=== PATIENT | male | born 1985 | race Caucasian/White ===

== ENCOUNTER 2023-10-01 20:18 | Inpatient (IN) | payer OTHER ==
[2023-10-01 22:47] VITALS: BMI 23.1
[2023-10-02] MEDS ORDERED: NICOTINE POLACRILEX 4 MG GUM BUC PRN (04:36)
[2023-10-02] MEDS ORDERED: POLYETHYLENE GLYCOL (HEALTHYLAX) 3350 17 GM PACKET PO PRN (04:36)
[2023-10-02] MEDS ORDERED: LOPERAMIDE HCL 2 MG CAPSULE PO PRN (04:36)
[2023-10-02] MEDS ORDERED: ACETAMINOPHEN 325 MG TABLET (FP) PO PRN (04:36)
[2023-10-02] MEDS ORDERED: IBUPROFEN 600 MG TABLET (FP) PO PRN (04:36)
[2023-10-02] MEDS ORDERED: METHOCARBAMOL 500 MG TABLET PO PRN (04:36)
[2023-10-02] MEDS ORDERED: NALOXONE HCL 0.4 MG/ML VIAL IM PRN (04:36)
[2023-10-02] MEDS ORDERED: BISMUTH SUBSALICYLATE 524 MG/30 ML PO PRN (04:36)
[2023-10-02] MEDS ORDERED: BENZONATATE 200 MG CAPSULE PO PRN (04:36)
[2023-10-02] MEDS ORDERED: DICYCLOMINE HCL 10 MG CAPSULE PO PRN (04:36)
[2023-10-02] MEDS ORDERED: guaiFENesin 600 MG TABLET.ER (FP) PO PRN (04:36)
[2023-10-02] MEDS ORDERED: IBUPROFEN 400 MG TABLET (FP) PO PRN (04:36)
[2023-10-02] MEDS ORDERED: hydrOXYzine PAMOATE 25 MG CAPSULE (FP) PO PRN (04:36)
[2023-10-02] MEDS ORDERED: MAG HYDROX/AL HYDROX/SIMETH 30 ML UNIT-DOSE CUP PO PRN (04:36)
[2023-10-02] MEDS ORDERED: NALOXONE HCL (KLOXXADO) 8 MG SPRAY NS PRN (04:36)
[2023-10-02] MEDS ORDERED: BENZOCAINE/MENTHOL (CHLORASEPTIC ) LOZENGE MM PRN (04:36)
[2023-10-02] MEDS ORDERED: MAGNESIUM HYDROX 2400MG/30ML ORAL SUSPENSION 30 ML CUP PO PRN (04:36)
[2023-10-02] MEDS ORDERED: ONDANSETRON *ODT* 4 MG TABLET SL PRN (04:36)
[2023-10-02] MEDS: PRENATAL VITAMINS W/ FOLIC ACID TABLET (FP) PO SCH (10:07)
[2023-10-02] MEDS: NICOTINE 21 MG/24 HOURS TOPICAL PATCH TD SCH (10:11)
[2023-10-02] MEDS ORDERED: chlordiazePOXIDE HCL 25 MG CAPSULE PO PRN (10:22)
[2023-10-02] MEDS: chlordiazePOXIDE HCL 25 MG CAPSULE PO SCH (11:33)
[2023-10-02] MEDS: THIAMINE HCL 100 MG TABLET (FP) PO SCH (22:28)
[2023-10-02] MEDS: MELATONIN 5 MG TABLETS PO SCH (22:28)
[2023-10-03 12:51] LABS: HEMATOCRIT 45.6 % (35.4-49); HEMOGLOBIN 15.8 GM/dL (11.7-16.9); MCHC 34.8 g/dl (32.0-35.9); MEAN PLT VOLUME 8.8 fl (7.5-11.1); PLATELET COUNT 199 10^3/uL (134-434); POTASSIUM 3.9 mmol/L (3.5-5.1); RBC 4.95 M/mm3 (4.00-5.60); RDW 13.3 % (11.9-15.9); WHITE BLOOD COUNT 5.3 K/mm3 (4.0-10.0)
[2023-10-03 13:00] LABS: CALCIUM 8.9 mg/dL (8.5-10.1); CREATININE 0.9 mg/dL (0.55-1.3)
[2023-10-03 13:01] LABS: ALBUMIN 3.9 g/dl (3.4-5.0)
[2023-10-03 13:02] LABS: BILIRUBIN,TOTAL 0.5 mg/dL (0.2-1)
[2023-10-03] MEDS ORDERED: ALBUTEROL SO4 0.083% IH SOL 2.5 MG/3 ML VIAL.NEB. NEB PRN (18:48)
[2023-10-03] MEDS: ALBUTEROL SO4 HFA INHALER IH PRN (22:11)
[2023-10-04] MEDS: chlordiazePOXIDE HCL 25 MG CAPSULE PO SCH (05:34)
[2023-10-04 13:22] VITALS: RESP 18
[2023-10-04 16:43] VITALS: BP 153/83; PULSE 97; TEMP 98.4
[2023-10-05] MEDS ORDERED: chlordiazePOXIDE HCL 10 MG CAPSULE PO PRN
[2023-10-05] MEDS ORDERED: chlordiazePOXIDE HCL 10 MG CAPSULE PO SCH (05:00)
[2023-10-06] MEDS ORDERED: chlordiazePOXIDE HCL 10 MG CAPSULE PO SCH (05:00)
[2023-10-07] MEDS ORDERED: chlordiazePOXIDE HCL 10 MG CAPSULE PO ONE (05:00)
== END 2023-10-04 18:50 | disposition left against medical advice (07) | DRG 770 ==
LOC: YASAS 20:18 → Y3N 10-02 04:51
PROVIDERS: ADMIT Allergy & Immunology; ATTEND Surgery
PROC: HZ2ZZZZ Detoxification Services for Substance Abuse Treatment (ICD-10-PCS; principal; 2023-10-02)
DX: F10.230 Alcohol dependence with withdrawal, uncomplicated (principal); F14.20 Cocaine dependence, uncomplicated; F12.20 Cannabis dependence, uncomplicated; F17.210 Nicotine dependence, cigarettes, uncomplicated; J43.9 Emphysema, unspecified; Z86.59 Personal history of other mental and behavioral disorders; Z91.148 Patient's other noncompliance with medication regimen for other reason
CPT/HCPCS: 36415; 80053; 80305; 80307; 85027; 86780; 87635; 87811; 93005; 93010

== ENCOUNTER 2023-10-05 03:42 | Inpatient (IN) | payer OTHER ==
[2023-10-05 04:30] VITALS: BMI 24.2
[2023-10-05] MEDS ORDERED: BENZONATATE 200 MG CAPSULE PO PRN (04:32)
[2023-10-05] MEDS ORDERED: NICOTINE POLACRILEX 2 MG GUM BUC PRN (04:32)
[2023-10-05] MEDS ORDERED: BENZOCAINE/MENTHOL (CHLORASEPTIC ) LOZENGE MM PRN (04:32)
[2023-10-05] MEDS ORDERED: MAGNESIUM HYDROX 2400MG/30ML ORAL SUSPENSION 30 ML CUP PO PRN (04:32)
[2023-10-05] MEDS ORDERED: DICYCLOMINE HCL 10 MG CAPSULE PO PRN (04:32)
[2023-10-05] MEDS ORDERED: ACETAMINOPHEN 325 MG TABLET (FP) PO PRN (04:32)
[2023-10-05] MEDS ORDERED: guaiFENesin 600 MG TABLET.ER (FP) PO PRN (04:32)
[2023-10-05] MEDS ORDERED: MAG HYDROX/AL HYDROX/SIMETH 30 ML UNIT-DOSE CUP PO PRN (04:32)
[2023-10-05] MEDS ORDERED: POLYETHYLENE GLYCOL (HEALTHYLAX) 3350 17 GM PACKET PO PRN (04:32)
[2023-10-05] MEDS ORDERED: IBUPROFEN 400 MG TABLET (FP) PO PRN (04:32)
[2023-10-05] MEDS ORDERED: ONDANSETRON *ODT* 4 MG TABLET SL PRN (04:32)
[2023-10-05] MEDS ORDERED: LOPERAMIDE HCL 2 MG CAPSULE PO PRN (04:32)
[2023-10-05] MEDS ORDERED: METOPROLOL TARTRATE 25 MG TABLET (FP) ONE (05:29)
[2023-10-05] MEDS: METOPROLOL TARTRATE 25 MG TABLET (FP) PO ONE (05:30)
[2023-10-05] MEDS: chlordiazePOXIDE HCL 10 MG CAPSULE PO SCH (05:36)
[2023-10-05] MEDS: PRENATAL VITAMINS W/ FOLIC ACID TABLET (FP) PO SCH (10:18)
[2023-10-05] MEDS: BISMUTH SUBSALICYLATE 524 MG/30 ML PO PRN (18:38)
[2023-10-05] MEDS: THIAMINE HCL 100 MG TABLET (FP) PO SCH (22:30)
[2023-10-05] MEDS: traZODone HCL 50 MG TABLET (FP) PO SCH (22:30)
[2023-10-05] MEDS: MELATONIN 5 MG TABLETS PO SCH (22:30)
[2023-10-06] MEDS: chlordiazePOXIDE HCL 10 MG CAPSULE PO SCH (05:42)
[2023-10-06] MEDS: ALBUTEROL SO4 HFA INHALER IH PRN (05:43)
[2023-10-06] MEDS: METHOCARBAMOL 500 MG TABLET PO PRN (07:03)
[2023-10-06] MEDS: IBUPROFEN 600 MG TABLET (FP) PO PRN (07:03)
[2023-10-06] MEDS: chlordiazePOXIDE HCL 10 MG CAPSULE PO PRN (22:21)
[2023-10-07] MEDS: chlordiazePOXIDE HCL 10 MG CAPSULE PO ONE (05:49)
[2023-10-07 09:07] VITALS: BP 134/82; PULSE 91; RESP 16; TEMP 98
== END 2023-10-07 13:56 | disposition other institution (70) | DRG 774 ==
LOC: YASAS 03:42 → Y3N 05:01
PROVIDERS: ADMIT Allergy & Immunology; ATTEND Allergy & Immunology
PROC: HZ2ZZZZ Detoxification Services for Substance Abuse Treatment (ICD-10-PCS; principal; 2023-10-05)
DX: F10.230 Alcohol dependence with withdrawal, uncomplicated (principal); F14.20 Cocaine dependence, uncomplicated; F12.20 Cannabis dependence, uncomplicated; F17.210 Nicotine dependence, cigarettes, uncomplicated; F41.9 Anxiety disorder, unspecified; I10 Essential (primary) hypertension
CPT/HCPCS: 80305; 87635; 87811

== ENCOUNTER 2024-02-15 17:42 | Inpatient (IN) | payer OTHER ==
[2024-02-15 19:20] VITALS: BMI 21.9
[2024-02-15] MEDS ORDERED: POLYETHYLENE GLYCOL (HEALTHYLAX) 3350 17 GM PACKET PO PRN (20:34)
[2024-02-15] MEDS ORDERED: NICOTINE POLACRILEX 2 MG GUM BUC PRN (20:34)
[2024-02-15] MEDS ORDERED: guaiFENesin 600 MG TABLET.ER (FP) PO PRN (20:34)
[2024-02-15] MEDS ORDERED: BENZONATATE 200 MG CAPSULE PO PRN (20:34)
[2024-02-15] MEDS ORDERED: MAGNESIUM HYDROX 2400MG/30ML ORAL SUSPENSION 30 ML CUP PO PRN (20:34)
[2024-02-15] MEDS ORDERED: LOPERAMIDE HCL 2 MG CAPSULE PO PRN (20:34)
[2024-02-15] MEDS ORDERED: BISMUTH SUBSALICYLATE 524 MG/30 ML PO PRN (20:34)
[2024-02-15] MEDS ORDERED: NICOTINE POLACRILEX 2 MG LOZENGE BC PRN (20:34)
[2024-02-15] MEDS ORDERED: BENZOCAINE/MENTHOL (CHLORASEPTIC ) LOZENGE MM PRN (20:34)
[2024-02-15] MEDS ORDERED: IBUPROFEN 400 MG TABLET (FP) PO PRN (20:34)
[2024-02-15] MEDS ORDERED: ONDANSETRON *ODT* 4 MG TABLET SL PRN (20:34)
[2024-02-15] MEDS ORDERED: DICYCLOMINE HCL 10 MG CAPSULE PO PRN (20:34)
[2024-02-15] MEDS: SULFAMETHOXAZOLE/TRIMETHOPRIM 800MG/160MG D.S. TABLET PO SCH (22:40)
[2024-02-15] MEDS: THIAMINE 100 MG TABLET PO SCH (22:40)
[2024-02-15] MEDS: MELATONIN 5 MG TABLETS PO SCH (22:40)
[2024-02-15] MEDS: METHOCARBAMOL 500 MG TABLET PO PRN (22:40)
[2024-02-15] MEDS: IBUPROFEN 600 MG TABLET (FP) PO PRN (22:40)
[2024-02-15] MEDS: BACITRACIN 0.9 GM PACKET TP SCH (23:47)
[2024-02-16] MEDS ORDERED: ALBUTEROL SO4 HFA INHALER IH PRN (07:20)
[2024-02-16] MEDS: ACETAMINOPHEN 325 MG TABLET (FP) PO PRN (09:43)
[2024-02-16] MEDS: GABAPENTIN 100 MG CAPSULE PO SCH (09:43)
[2024-02-16] MEDS: PRENATAL VITAMINS W/ FOLIC ACID TABLET (FP) PO SCH (09:43)
[2024-02-16] MEDS: chlordiazePOXIDE HCL 25 MG CAPSULE PO SCH (10:12)
[2024-02-16 11:56] LABS: HEMATOCRIT 43.8 % (35.4-49); HEMOGLOBIN 14.8 GM/dL (11.7-16.9); MCH 31.5 pg (25.7-33.7); MCHC 33.8 g/dl (32.0-35.9); MEAN CELL VOLUME 93.2 fl (80-96); MEAN PLT VOLUME 8.8 fl (7.5-11.1); PLATELET COUNT 205 10^3/uL (134-434); RDW 13.4 % (11.9-15.9); WHITE BLOOD COUNT 6.8 K/mm3 (4.0-10.0)
[2024-02-16 12:05] LABS: CHLORIDE 104 mmol/L (98-107); POTASSIUM 3.4 mmol/L (3.5-5.1); SODIUM 139 mmol/L (136-145)
[2024-02-16 12:07] LABS: ANION GAP 8 mmol/L (4-13); CO2 28 mmol/L (21-32)
[2024-02-16 12:09] LABS: GLUCOSE,RANDOM 122 mg/dL (74-106)
[2024-02-16 12:10] LABS: ALBUMIN 3.9 g/dl (3.4-5.0); BLOOD UREA NITROGEN 26.1 mg/dL (7-18)
[2024-02-16 12:13] LABS: CREATININE 1.2 mg/dL (0.55-1.3); SGOT/AST 30 U/L (15-37); SGPT/ALT 45 U/L (13-61)
[2024-02-16 12:14] LABS: TOT PROT 7.6 g/dl (6.4-8.2)
[2024-02-16 12:15] LABS: ALK PHOS 97 U/L (45-117); BILIRUBIN,TOTAL 0.8 mg/dL (0.2-1)
[2024-02-16] MEDS ORDERED: ALBUTEROL SO4 0.083% IH SOL 2.5 MG/3 ML VIAL.NEB. NEB PRN (17:47)
[2024-02-16] MEDS: traZODone HCL 50 MG TABLET (FP) PO SCH (21:57)
[2024-02-16] MEDS: MUPIROCIN 2% TOPICAL OINTMENT 22 GM TUBE TP SCH (22:30)
[2024-02-17] MEDS: MELATONIN 5 MG TABLETS PO ONE (01:17)
[2024-02-17] MEDS: NALTREXONE HCL 50 MG TABLET PO ONE (10:38)
[2024-02-18] MEDS: chlordiazePOXIDE HCL 25 MG CAPSULE PO SCH (05:37)
[2024-02-18] MEDS: MAG HYDROX/AL HYDROX/SIMETH 30 ML UNIT-DOSE CUP PO PRN (09:25)
[2024-02-18] MEDS: NALTREXONE HCL 50 MG TABLET PO SCH (10:27)
[2024-02-18] MEDS: hydrOXYzine PAMOATE 25 MG CAPSULE (FP) PO PRN (19:22)
[2024-02-18] MEDS: chlordiazePOXIDE HCL 25 MG CAPSULE PO PRN (19:22)
[2024-02-19] MEDS ORDERED: chlordiazePOXIDE HCL 10 MG CAPSULE PO PRN
[2024-02-19] MEDS: chlordiazePOXIDE HCL 10 MG CAPSULE PO SCH (05:42)
[2024-02-20] MEDS: chlordiazePOXIDE HCL 10 MG CAPSULE PO SCH (05:34)
[2024-02-20] MEDS: SUMAtriptan SUCCINATE 25 MG TABLET PO ONE (10:50)
[2024-02-20 13:06] VITALS: BP 151/97; PULSE 86; RESP 18; TEMP 97.3
[2024-02-21] MEDS ORDERED: chlordiazePOXIDE HCL 10 MG CAPSULE PO ONE (05:00)
== END 2024-02-20 16:22 | disposition home or self-care (01) | DRG 774 ==
LOC: YASAS 17:42 → SUATTDRO 17:42 → Y3N 22:02
PROVIDERS: ADMIT Allergy & Immunology; ATTEND Surgery
PROC: HZ2ZZZZ Detoxification Services for Substance Abuse Treatment (ICD-10-PCS; principal; 2024-02-15)
DX: F10.230 Alcohol dependence with withdrawal, uncomplicated (principal); F14.20 Cocaine dependence, uncomplicated; F12.20 Cannabis dependence, uncomplicated; F17.210 Nicotine dependence, cigarettes, uncomplicated; F41.9 Anxiety disorder, unspecified; R51.9 Headache, unspecified; J43.9 Emphysema, unspecified; J45.909 Unspecified asthma, uncomplicated; R00.0 Tachycardia, unspecified; S61.502A Unspecified open wound of left wrist, initial encounter; Y04.0XXA Assault by unarmed brawl or fight, initial encounter; Y93.9 Activity, unspecified; Y92.9 Unspecified place or not applicable; Z91.148 Patient's other noncompliance with medication regimen for other reason; Z56.0 Unemployment, unspecified
CPT/HCPCS: 36415; 80053; 80305; 80307; 85027; 86780